=== PATIENT | female | born 1985 | race Caucasian/White ===

== ENCOUNTER 2018-02-11 05:47 | Inpatient (IN) | payer MEDICAID, OTHER, SELFPAY ==
[2018-02-11 06:29] VITALS: BMI 38.3
[2018-02-11] MEDS: Lactated Ringer's 1,000 ML IV SCH ×3 (06:46→22:05)
[2018-02-11] MEDS ORDERED: Penicillin G Potassium 5 MILL.UNITS VIAL ONE (07:25)
[2018-02-11] MEDS ORDERED: Acetaminophen 500 MG TAB PO PRN (07:29)
[2018-02-11] MEDS ORDERED: NS / Oxytocin 40 units/1000ml 1,000 ML IV PRN (07:29)
[2018-02-11] MEDS ORDERED: Docusate 100 MG CAP PO PRN (07:29)
[2018-02-11] MEDS ORDERED: Lidocaine 1% (PF) 30 ML VIAL SC PRN (07:29)
[2018-02-11] MEDS ORDERED: Butorphanol Tartrate 1 MG/ML VIAL SLOW IVP PRN (07:29)
[2018-02-11] MEDS ORDERED: Ondansetron HCl/PF 4 MG/2 ML Vial IVP PRN ×6 (07:29→20:50)
[2018-02-11] MEDS ORDERED: Promethazine HCl 25 MG/ML VIAL IM PRN ×4 (07:29→20:50)
--- NOTE | 2018-02-11 07:32 | PDOC.LDHP ---
Labor and Delivery H&P Chief complaint: contractions HPI: This is a 32 yo female at 41.4 by lmp consistent with 32.5wk US who comes in for contractions less than 5 minutes apart. She was scheduled for C/S last week on 02/05 but no-showed that appointment. She desires TOLAC. Her chance of success was 25.7% by calculator. SHe denies headache, sob, visual changes, swelling, abdominal pain aside from contractions or swelling. She denies bleeding, discharge, burning with urination, or dwyer of fluids. She says she feels baby moving often. Current gestational age (weeks): 41 (41w4d) Due date: 01/31/18 Dating criteria: last menstrual period, other (32w5d us) Grav: 2 Para: 1 OB History Details: prior LTCS with extension of hysterotomy cytotec induction with arrest of descent Current complications: none Abnormal US findings: No Current medications: pre-nellie vitamins Previous surgical history: low tranverse CS Social history: none - Physical Exam Abnormal vital signs: initial pressure 170/108, repeats in high 140s to 150s General: NAD, other (does feel contractions) Heart: RRR Lungs: nonlabored breathing Abdomen: NTTP Extremeties: no edema FHT: category 1 - Vaginal Exam cm dilated: 5 Effacement: 50% Station: -1 - OB Labs Blood type: O RH: positive Antibody Screen: negative HIV: negative RPR: negative HEPSAg: negative 1 hour GCT: negative GBS: positive Urine drug screen: negative Rubella: immune - Assessment L&D Assessment: term patient in labor - Plan Plan: admit to L&D -: # Post-dates intrauterine in labor - /-1 @0630 - cxns q5 min, category 1 strip, no decels - desires epidural - discussed 25.7% chance of successful patient understands she has a high likelihood of progressing to C/S, she understands risks and benefits including risk to self and for attempted - IOL negative, GC/CT negative, no record of 3T labs available will check - expectant management # elevated BP - no hx of pre-e - no hx of elevated pressures - will check pre-e labs - trend BP # GBS positive - penicillin prophylaxis PCP: Naun SERRANO for peds, other children see [facility] Discussed with Drs. Rowland and Naun <Erich Jensen - Last Filed: 02/11/18 07:34> <Suzy Magallon - Last Filed: 02/11/18 09:38> Allergies/Adverse Reactions: Allergies Allergy/AdvReac Type Severity Reaction Status Date / Time No Known Allergies Allergy Verified 03/03/14 23:11 Attending Addendum - Attending Addendum Date/Time: 02/11/1828 I personally evaluated the patient and discussed the management with Dr. Jensen. I agree with the History, Examination, Assessment and Plan documented above with any addition or exceptions noted below. 32yo at 41w1d dated by LMP consistent with 32wUS presenting for contractions. Pt has a history of LTCS with extension of hysterotomy after getting to 10cm and pushing without arrest of descent. She feels this baby is bigger than the last and states that baby went "up" when she was pushing. Pt has been counseled extensively on the low chance of successful given this history however she is adamant that she wants at TOLAC. She has verbalized understanding of the 1% chance of uterine rupture and potential maternal and morbidity associated with it. 1. Term TOLAC -Expectant management -/-2 on my exam -Cat I tracing -Would prefer IUPC prior to starting pitocin for augmentation 2. GBS positive -PCN prophylaxis 3. Elevated BP -All BP since getting epidural have been normotensive -Suspect pain related -Labs WNL (urine still pending) and pt is asymptomatic <Suzy Magallon - Last Filed: 02/11/18 09:38>
[2018-02-11 07:39] LABS: #Basophils 0.1 thou/uL (0.0-0.2); #Lymphocytes 2.3 thou/uL (1.20-3.40); #Monocytes 0.5 thou/uL (0.11-0.59); #Neutrophils 4.2 thou/uL (1.40-6.50); %Basophils 0.8 % (0.0-1.0); %Eosinophils 0.5 % (0.0-10.0); %Lymphocytes 32.4 % (21.0-51.0); %Monocytes 7.2 % (0.0-10.0); %Neutrophils 59.1 % (42.0-75.0); Mean Corpuscular HGB CONC 33.8 g/dL (32.0-36.0); Mean Corpuscular Hemoglobin 29.8 pg (27.0-31.0); Mean Corpuscular Volume 88.1 fL (78.0-98.0); Mean Platelet Volume 11.1 fL (7.4-10.4); Platelet Count 170 thou/uL (130-400); RBC Distribution Width 14.3 % (11.5-14.5); Red Blood Cell (RBC) Count 4.35 mill/uL (4.20-5.40); White Blood Cell (WBC) Count 7.2 thou/uL (4.8-10.8)
[2018-02-11 08:03] LABS: ALT (SGPT) 10 U/L (8-55); AST (SGOT) 18 U/L (5-34); Albumin 3.6 g/dL (3.5-5.0); Alkaline Phosphatase 158 U/L (40-150); Anion Gap 14 mmol/L (10-20); BUN (Urea Nitrogen) 8 mg/dL (7.0-18.7); Bilirubin, Total 0.3 mg/dL (0.2-1.2); Calc. Creatinine Clearance 155 mL/min (70-130); Calcium 9.3 mg/dL (7.8-10.44); Carbon Dioxide 21 mmol/L (22-29); Chloride 106 mmol/L (98-107); Estimated GFR-MDRD Greater than 90; Globulin 3.2 g/dL (2.4-3.5); Glucose 73 mg/dL (70-105); Potassium 4.4 mmol/L (3.5-5.1); Protein, Total 6.8 g/dL (6.0-8.3); Sodium 137 mmol/L (136-145); Uric Acid 7.6 mg/dL (2.6-6.0)
[2018-02-11] MEDS: Bupivacaine 0.5% 20 ML, fentaNYL Citrate/PF 400 MCG in Sodium Chloride 0.9% 72 ML EPIDURAL SCH ×2 (08:06→14:25)
[2018-02-11] MEDS ORDERED: ePHEDrine/0.9% NaCl/PF SYRINGE 50 mg/10 ml SLOW IVP PRN (08:11)
[2018-02-11] MEDS ORDERED: Lactated Ringer's 500 ML IV PRN (08:11)
[2018-02-11] MEDS ORDERED: Naloxone HCl 0.4 mg/ml Vial IVP PRN ×6 (08:11→20:50)
[2018-02-11] MEDS ORDERED: Acetaminophen 325 MG TAB PO PRN ×2 (08:11→20:19)
[2018-02-11] MEDS ORDERED: Eucerin (Mineral Oil/Petrolatum,White) 30 gm Jar TOP PRN ×3 (08:11→20:50)
[2018-02-11] MEDS ORDERED: diphenhydrAMINE 50 MG/ML VIAL IVP PRN ×2 (08:11→15:31)
[2018-02-11] MEDS ORDERED: fentaNYL Citrate/PF 400 MCG, Bupivacaine 0.5% 20 ML in Sodium Chloride 0.9% 72 ML EPIDURAL SCH (08:15)
[2018-02-11] MEDS ORDERED: Communication Order-Pharmacy FS SCH ×3 (08:15→21:00)
[2018-02-11 08:19] LABS: Syphilis Antibody Nonreactive (Nonreactive); Syphilis Antibody Index 0.05 S/CO (<1.00 Non-Reactive)
[2018-02-11 08:31] LABS: Hep B Surf Ag Non-Reactive S/CO (NonReactive)
--- NOTE | 2018-02-11 08:39 | PDOC.LDPN ---
Addendum entered and electronically signed by Macrina Wilhelm MD 02/11/18 09:26 : Please addend: patient has received PCN X 1. Next dose at 1130 Original Note: Labor & Delivery Progress Note - Subjective Subjective: comfortable, no concerns - Objective Vital signs reviewed and normal: yes General: NAD, resting, breathing through contractions Uterine fundus: non tender Dilation: 6 Effacement: 75% Station: -1 FHT: category 1 [place] contractions every: every 4-5 min Resuscitative measures: maternal IV fluids - Assessment (1) Intrauterine Code(s): Z34.90 - ENCNTR FOR SUPRVSN OF NORMAL , UNSP, UNSP TRIMESTER Current Visit: Yes Status: Acute (2) Gestational hypertension Code(s): O13.9 - GESTATIONAL HTN W/O SIGNIFICANT PROTEINURIA, UNSP TRIMESTER Current Visit: Yes Status: Acute Plan: continue plan of care -: This is a 32 yo @ 41.4wks here in labor; desires ; epidural in place. Has friend in the room who has been translating. No family nearby. Post-dates intrauterine in labor - /-1 @0830 - cxns q5 min, category 1 strip, no decels - epidural in place - discussed 25.7% chance of successful patient understands she has a high likelihood of progressing to C/S, she understands risks and benefits including risk to self and infant for attempted - IOL negative, GC/CT negative, no record of 3T labs available will check - expectant management: recheck in 2-4 hours elevated BP - no hx of pre-e - no hx of elevated pressures - Pre-e labs: liver enzymes nml, plts nml, urine protein/cr pending - trend BP: most recent 113/64 - Will consider IV labetolol if pressures rise GBS positive - PCN X 2 PCP: Naun SERRANO for peds, other children see [facility] Discussed with Drs. Rowland and Naun <Macrina Wilhelm - Last Filed: 02/11/18 08:40> Attending Addendum - Attending Addendum Date/Time: 02/11/18 0939 I personally evaluated the patient and discussed the management with Dr. Wilhelm I agree with the History, Examination, Assessment and Plan documented above with any addition or exceptions noted below. Would not diagnose gestational hypertension at this time as pt has had no documented history of elevated pressures prior to this visit while she was in pain. <Suzy Magallon - Last Filed: 02/11/18 09:40>
[2018-02-11 08:54] LABS: HBSAg Index 0.27 S/CO (0-0.99)
[2018-02-11 08:55] LABS: HIV (1/2) Antibody/Antigen Non-Reactive (NonReactive); HIV 1/2 INDEX 0.17 S/CO (<1.00)
[2018-02-11 10:10] LABS: Bilirubin Negative (Negative); Blood, Urine Trace (Negative); Clarity CLEAR (Clear); Glucose, Urine (Dipstick) Negative (Negative); Leukocyte Negative (Negative); Nitrite Negative (Negative); Protein, Urine (Dipstick) Negative (Neg-Trace); Specific Gravity, Urine 1.016 (1.002-1.036); Urobilinogen 0.2 mg/dL (0.2-1.0)
[2018-02-11 10:14] LABS: Bacteria/HPF None Seen HPF (None Seen); Hyaline Casts/LPF 0-3 HYALINE CAST LPF (0-3 Hyaline); Pathc Cast-AUWi Flag 0.43 (0-2.49); Squamous Epithelial 0-3 HPF (0-3); WBC/HPF 0-3 HPF (0-3)
[2018-02-11] MEDS ORDERED: Ondansetron HCl/PF 4 MG/2 ML Vial ONE ×2 (10:20→15:22)
[2018-02-11] MEDS ORDERED: Dexamethasone 20 MG/5 ML VIAL ONE (10:20)
[2018-02-11] MEDS ORDERED: Ketorolac Tromethamine 30 MG/ML VIAL ONE ×2 (10:20→15:36)
[2018-02-11] MEDS: Penicillin G 2.5 MILL.units 2.5 MILL.UNITS in Premix Bag 1 BAG IVPB SCH ×2 (11:30→16:43)
--- NOTE | 2018-02-11 11:47 | PDOC.LDPN ---
Labor & Delivery Progress Note - Subjective Subjective: comfortable, painful contractions - Objective Vital signs reviewed and normal: yes General: NAD, resting, breathing through contractions Uterine fundus: non tender Dilation: 7 Effacement: 90% Station: -1 FHT: category 1 Resuscitative measures: maternal IV fluids - Assessment (1) Intrauterine Code(s): Z34.90 - ENCNTR FOR SUPRVSN OF NORMAL , UNSP, UNSP TRIMESTER Current Visit: Yes Status: Acute (2) Gestational hypertension Code(s): O13.9 - GESTATIONAL HTN W/O SIGNIFICANT PROTEINURIA, UNSP TRIMESTER Current Visit: Yes Status: Acute -: This is a 32 yo @ 41.4wks here in labor; desires ; epidural in place. Has friend in the room who has been translating. No family nearby. Post-dates intrauterine in labor - /-1 @ 1130 - CTXs q3-5 min, category 1 strip, no decels - epidural in place - discussed 25.7% chance of successful patient understands she has a high likelihood of progressing to C/S, she understands risks and benefits including risk to self and infant for attempted - IOL negative, GC/CT negative, no record of 3T labs available will check - expectant management: recheck in 2-4 hours; Will consider AROM elevated BP - no hx of pre-e - no hx of elevated pressures - Pre-e labs neg - BP wnl - Will consider IV labetolol if pressures rise GBS positive - PCN X 2: adequately tx PCP: Naun SERRANO for peds, other children see [facility] Discussed with Drs. [place] <Macrina Wilhelm - Last Filed: 02/11/18 11:49> Attending Addendum - Attending Addendum Date/Time: 02/11/18 1220 I personally evaluated the patient and discussed the management with Dr. Wilhelm I agree with the History, Examination, Assessment and Plan documented above with any addition or exceptions noted below. Pt now /-1 AROMed for large amount of light meconium stained fluid. IUPC placed 135/moderate variability/accels present/one brief variable decel immediately after AROM. Otherwise Cat I tracing. BP again elevated with pain but normotensive after rebolusing her epidural. She remains asymptomatic and labs WNL. Continue close monitoring. <Suzy Magallon - Last Filed: 02/11/18 12:23>
--- NOTE | 2018-02-11 14:21 | PDOC.LDPN ---
Labor & Delivery Progress Note - Subjective Subjective: comfortable, no concerns - Objective Vital signs reviewed and normal: yes General: NAD, resting, breathing through contractions Uterine fundus: non tender Dilation: 7 Effacement: 90% Station: 0 FHT: category 2, variable decelerations (occasional variables with contractions) , variability present [place] contractions every: every 3-5 min AROM: meconium stained fluid (light) IUPC placed: yes Resuscitative measures: maternal IV fluids - Assessment (1) Intrauterine Code(s): Z34.90 - ENCNTR FOR SUPRVSN OF NORMAL , UNSP, UNSP TRIMESTER Current Visit: Yes Status: Acute (2) Gestational hypertension Code(s): O13.9 - GESTATIONAL HTN W/O SIGNIFICANT PROTEINURIA, UNSP TRIMESTER Current Visit: Yes Status: Acute Plan: continue plan of care -: This is a 32 yo @ 41.4wks here in labor; desires ; epidural in place. Has friend in the room who has been translating. No family nearby. Post-dates intrauterine in labor - @ 1130 - CTXs q3-5 min, category 2, variable decelerations - epidural in place - discussed 25.7% chance of successful patient understands she has a high likelihood of progressing to C/S, she understands risks and benefits including risk to self and for attempted - IOL negative, GC/CT negative, no record of 3T labs available will check - expectant management: recheck in 2-4 hours - AROM'd and IUPC in place elevated BP - no hx of pre-e - no hx of elevated pressures - Pre-e labs neg - BP wnl - Will consider IV labetolol if pressures rise GBS positive - PCN X 2: adequately tx PCP: Naun SERRANO for peds, other children see [facility] Discussed with Drs. Rowland and Naun
[2018-02-11] MEDS ORDERED: NS w/ Oxytocin 10 units 500 ML IV SCH ×2 (14:30)
[2018-02-11] MEDS ORDERED: Terbutaline Sulfate 1 MG/ML VIAL SC SCH (15:00)
[2018-02-11] MEDS ORDERED: Bicitra 30 ML UDCUP ONE (15:08)
[2018-02-11] MEDS ORDERED: CEFAZOLIN/Water 2 GM/20 ML SYRINGE ONE (15:08)
--- NOTE | 2018-02-11 15:10 | PDOC.EVN ---
Event Note - Event Note Event Note: Pt is 9cm/100/-1 and having recurrent deep variables to the 60s with every contraction. Variables not improved despite repositioning, maternal oxygen and fluids. Will proceed with repeat for non reassuring heart tracing. R/B/A were discussed with patient who is in agreeance with plan.
[2018-02-11] MEDS ORDERED: Bupivacaine PF 0.5% 30 ML VIAL ONE (15:12)
[2018-02-11] MEDS ORDERED: Lidocaine 2% PF Inj 2 ML VIAL ONE (15:12)
[2018-02-11] MEDS ORDERED: Terbutaline Sulfate 1 MG/ML VIAL ONE (15:12)
[2018-02-11] MEDS ORDERED: Oxytocin 10 UNITS/ML VIAL ONE ×2 (15:21→16:03)
[2018-02-11] MEDS ORDERED: Morphine PF 1 MG/ML SYR ONE (15:23)
[2018-02-11] MEDS ORDERED: HYDROmorphone 2 MG/ML VIAL SLOW IVP PRN (15:30)
[2018-02-11] MEDS ORDERED: Ketorolac Tromethamine 30 MG/ML VIAL IVP SCH (15:30)
[2018-02-11] MEDS ORDERED: Meperidine HCl/PF 25 MG/ML VIAL SLOW IVP PRN (15:30)
[2018-02-11] MEDS ORDERED: Naloxone HCl 0.4 mg/ml Vial IV PRN ×2 (15:31→20:50)
[2018-02-11] MEDS ORDERED: Ketorolac Tromethamine 30 MG/ML VIAL IVP PRN ×2 (15:31→20:50)
[2018-02-11] MEDS ORDERED: Promethazine HCl 25 MG SUPP PR PRN ×2 (15:31→20:50)
[2018-02-11] MEDS ORDERED: Meperidine HCl/PF 25 MG/ML VIAL ONE ×2 (15:35→18:04)
[2018-02-11] MEDS ORDERED: Dexamethasone 4 mg/ml Vial ONE (15:36)
[2018-02-11 15:52] LABS: Actual Bicarbonate (HCO3a) 14.2 mEq/L (22-28); Analyzer IN Cardio OR
[2018-02-11] MEDS ORDERED: Bicitra 30 ML UDCUP PO SCH (17:00)
--- NOTE | 2018-02-11 18:10 | OP ---
PREOPERATIVE DIAGNOSES: 1. Active labor at 41 weeks and 4 days. 2. Trial of labor after section. 3. Nonreassuring heart tracing. 4. Prior section x1. POSTOPERATIVE DIAGNOSES: 1. Active labor at 41 weeks and 4 days. 2. Failed trial of labor after . 3. Nonreassuring heart tracing. 4. Prior section x1. PROCEDURE PERFORMED: Repeat low transverse section via Pfannenstiel skin incision. SURGEON: Suzy Magallon D.O. SUPERVISOR SMOKE CONTROL: Erich Jensen M.D., Tyshawn Robbins M.D. and Cayden Brush D.O. ANESTHESIA: Epidural. COMPLICATIONS: None. ESTIMATED BLOOD LOSS: 1311. URINE OUTPUT: 900. INDICATIONS: A 32-year-old G2, P1-0-0-1, presented in active labor at 41 weeks 4 days with a history of prior section x1, desired trial of labor after section. The patient progressed to 9 cm; however, began to have deep recurrent variable decelerations down to the 60s with slow return to baseline. They did not improve with resuscitative measures. Decision was made to proceed with repeat section for nonreassuring heart tracing. FINDINGS: Female infant in cephalic presentation delivered at 1530 on 2017, Apgars 8 and 9. Weight 2868 grams, significant intra-abdominal adhesions. PROCEDURE IN DETAIL: After informed consent was obtained, the patient was taken to the operating room where epidural anesthesia was found to be adequate. She was prepped and draped in the normal sterile fashion in the dorsal supine position with a leftward tilt. A Pfannenstiel skin incision was made with a scalpel and carried through to the underlying layer of the fascia. The fascia was incised in the midline and the incision was extended laterally with Luevano scissors. Superior aspect of the fascial incision was then grasped with Kasandra clamps and the rectus muscle was dissected off sharply using Luevano scissors. The inferior aspect of the fascial incision was grasped in a similar fashion with Kasandra clamps and the rectus muscle was dissected off sharply using Luevano scissors. The rectus muscles were in the midline and the peritoneum was identified and entered bluntly. This incision was then extended laterally. At that time, significant intra-abdominal adhesions were noted. Care was taken to remove the bladder from the surgical field. The bladder blade was inserted and intra-abdominal adhesions were taken down using sharp dissection. The lower uterine segment was incised in a transverse fashion with the scalpel. The uterine incision was then bluntly extended. The bladder blade was removed and the infant's head was delivered atraumatically. The cord was clamped and cut and the was handed off to waiting pediatricians. Cord gases were sent and pH was 7.25 with base excess was 5. The placenta was then removed manually. The uterus could not be exteriorized due to intra-abdominal adhesions and thus the hysterotomy was repaired in situ. The uterine incision was repaired with 1-0 Vicryl in a running locked fashion. A right-sided inferior lateral hysterotomy extension was noted. A single [id number] was used to obtain hemostasis at the midline of the hysterotomy. The hysterotomy was inspected and noted to be hemostatic. The bladder was backfilled with sterile formula and no extravasation was noted. The gutters were cleared of clots and debris. The muscle was not closed. The fascia was reapproximated with #0 PDS in a running fashion. The subcuticular space was reapproximated with 2-0 plain and the skin was closed with raj. The patient tolerated the procedure well. Sponge, lap, and needle counts were correct x2. Two grams of Ancef was given prior to the procedure. Fundal massage was performed at the end of the procedure to remove all clots from the low uterine segment. The patient was taken to recovery room in stable condition. JUSTIN
[2018-02-11] MEDS ORDERED: Morphine 4 MG/ML VIAL ONE (18:16)
[2018-02-11] MEDS ORDERED: Simethicone Chewable 80 MG TAB PO PRN (20:19)
[2018-02-11] MEDS ORDERED: Acetaminophen/Codeine 30-300mg Tablet PO PRN (20:19)
[2018-02-11] MEDS ORDERED: Lanolin Ointment 7 GM TUBE TOP PRN (20:19)
[2018-02-11] MEDS ORDERED: Adacel (T-DAP) 0.5 ML VIAL IM ONE (21:00)
[2018-02-11] MEDS ORDERED: CEFAZOLIN 1 GM in Sodium Chloride 0.9% 100 ML IVPB SCH (22:00)
[2018-02-11] MEDS ORDERED: CEFAZOLIN 1 GM VIAL SLOW IVP SCH (22:00)
[2018-02-11] MEDS ORDERED: CEFAZOLIN 2 GM in Sodium Chloride 0.9% 100 ML IVPB SCH (22:00)
[2018-02-11] MEDS: CEFAZOLIN/Water 2 GM/20 ML SYRINGE SLOW IVP SCH (22:06)
[2018-02-11] MEDS: diphenhydrAMINE 50 MG/ML VIAL IVP PRN (23:33)
[2018-02-12] MEDS: Docusate Calcium (SURFAK) 240 MG CAP PO SCH ×3 (02:42→21:41)
[2018-02-12] MEDS: Ferrous Sulfate 325 MG TAB PO SCH ×3 (02:42→21:43)
[2018-02-12] MEDS ORDERED: Sodium Chloride 0.9% 10 ML ONE (04:44)
[2018-02-12] MEDS: diphenhydrAMINE 50 MG/ML VIAL IVP PRN (05:16)
[2018-02-12 05:25] LABS: Hemoglobin 10.4 g/dL (12.0-16.0); Mean Corpuscular HGB CONC 33.1 g/dL (32.0-36.0); Mean Corpuscular Hemoglobin 29.8 pg (27.0-31.0); Mean Corpuscular Volume 90.1 fL (78.0-98.0); Mean Platelet Volume 10.2 fL (7.4-10.4); Platelet Count 122 thou/uL (130-400); RBC Distribution Width 14.2 % (11.5-14.5); Red Blood Cell (RBC) Count 3.48 mill/uL (4.20-5.40); White Blood Cell (WBC) Count 12.1 thou/uL (4.8-10.8)
[2018-02-12] MEDS: CEFAZOLIN/Water 2 GM/20 ML SYRINGE SLOW IVP SCH ×2 (06:28→13:47)
[2018-02-12] MEDS: Lactated Ringer's 1,000 ML IV SCH ×2 (06:41→18:41)
--- NOTE | 2018-02-12 06:44 | PDOC.PP ---
Post Progress Note Post Day #: 1 Subjective: Patient states she has very minimal pain this AM. She has not been ambulating as of yet. She states she has not had any N/V/D. She states she has had minimal vaginal bleeding overnight, less than a menses. PO intake tolerated: yes Flatus: yes Ambulation: no Vital Signs (12 hours) Temp Pulse Resp BP 02/12/18 04:00 98.0 F 66 18 130/78 02/12/18 02:05 18 02/11/18 23:59 98.8 F 71 18 130/72 02/11/18 23:26 98.8 F 71 18 02/11/18 22:15 98.3 F 69 18 136/73 02/11/18 21:15 98.6 F 69 18 140/70 02/11/18 19:40 98.9 F 67 20 151/70 H Weight Weight 74.843 kg - Physical Examination General: NAD Cardiovascular: no m/r/g, RRR Respiratory: clear to auscultation bilaterally, non-labored breathing Abdominal: + bowel sounds, appropriately TTP Extremities: negative homans (B) Skin: CS incision dry & intact (bruising on superior edge of incision site), no rash Neurological: no gross focal deficits Psychiatric: A&Ox3, normal affect Result Diagrams: 02/12/18 05:03 02/11/18 06:57 Additional Labs: Post Labs Blood Type O POSITIVE 02/11/18 06:57 Hep Bs Antigen Non-Reactive S/CO (NonReactive) 02/11/18 06:57 (1) Gestational hypertension Code(s): O13.9 - GESTATIONAL HTN W/O SIGNIFICANT PROTEINURIA, UNSP TRIMESTER Status: Acute (2) Intrauterine Code(s): Z34.90 - ENCNTR FOR SUPRVSN OF NORMAL , UNSP, UNSP TRIMESTER Status: Acute (3) delivery delivered Code(s): O82 - ENCOUNTER FOR DELIVERY WITHOUT INDICATION Status: Acute (4) Failed induction Code(s): O61.9 - FAILED INDUCTION OF LABOR, UNSPECIFIED Status: Acute (5) hemorrhage Code(s): O72.1 - OTHER IMMEDIATE HEMORRHAGE Status: Acute - Assessment/Plan # PP day 1 - eating, passsed gas - feels ready to ambulate this AM - pain well-controlled - - low urine output overnight, catheter out this AM, will monitor # PPH - Hgb 13.0-> 10.4 - asymptomatic, monitor # Gestational HTN - pressures WNL overnight - 1 pressure to 150 systolic at 1900 - no headache, visual changes, sob, or abdominal pain - Pr/Cr 0.2 Fluids: LR 125ml/hr Code: full Diet: regular Dispo: 1-2 days <Erich Jensen - Last Filed: 02/12/18 06:42> Vital Signs (12 hours) Temp Pulse Resp BP 02/12/18 06:43 18 02/12/18 04:00 98.0 F 66 18 130/78 02/12/18 02:05 18 02/11/18 23:59 98.8 F 71 18 130/72 02/11/18 23:26 98.8 F 71 18 02/11/18 22:15 98.3 F 69 18 136/73 02/11/18 21:15 98.6 F 69 18 140/70 Weight Weight 74.843 kg Result Diagrams: 02/12/18 05:03 02/11/18 06:57 Additional Labs: Post Labs Blood Type O POSITIVE 02/11/18 06:57 Hep Bs Antigen Non-Reactive S/CO (NonReactive) 02/11/18 06:57 <Suzy Magallon - Last Filed: 02/12/18 08:22> Attending Addendum - Attending Addendum Date/Time: 02/12/18 0816 I personally evaluated the patient and discussed the management with Dr. Jensen I agree with the History, Examination, Assessment and Plan documented above with any addition or exceptions noted below. POD#1. Pt reports she is doing well this morning. Has eaten without nausea. Ambulated without dizziness. Foote out this morning. Has not urinated yet. Pain controlled. Bleeding is minimal. Denies flatus. On exam, hypoactive bowel sounds noted. Abd is soft, non distended, appropriately tender to palpation. Uterus firm and below umbilicus. Appropriate drop in H+H postoperatively. Calculated EBL based on postop H+H is 936 ml. Vitals are stable. Continue routine postoperative care. Anticipate d/c to home on POD # 2 or 3. <Suzy Magallon - Last Filed: 02/12/18 08:22>
[2018-02-12] MEDS ORDERED: Penicillin G Potassium 5 MILL.UNITS in Sodium Chloride 0.9% 100 ML IVPB SCH (08:00)
[2018-02-12] MEDS: Penicillin G 2.5 MILL.units 2.5 MILL.UNITS in Premix Bag 1 BAG IVPB SCH (08:35)
[2018-02-12] MEDS: Prenatal Vitamin 1 TAB PO SCH (09:17)
[2018-02-12] MEDS: Acetaminophen/Codeine 30-300mg Tablet PO PRN ×3 (13:41→21:42)
[2018-02-12] MEDS: Ibuprofen 800 MG TAB PO SCH ×2 (13:41→21:41)
[2018-02-13] MEDS: Lactated Ringer's 1,000 ML IV SCH (04:48)
[2018-02-13] MEDS: CEFAZOLIN/Water 2 GM/20 ML SYRINGE SLOW IVP SCH (04:49)
[2018-02-13] MEDS: Ibuprofen 800 MG TAB PO SCH ×2 (06:10→14:09)
--- NOTE | 2018-02-13 06:28 | PDOC.PP ---
Post Progress Note Post Day #: 2 Subjective: This morning mother states she is feeling well. Pain is well-controlled. She has ambulated without difficulty. She is eating and drinking w/o N/V/D. Had a BM last night. She states she would like to go home later to day if able. PO intake tolerated: yes Flatus: yes Ambulation: yes Vital Signs (12 hours) Temp Pulse Resp BP 02/13/18 04:05 97.6 F 69 16 128/70 02/13/18 00:05 98.2 F 77 16 117/78 02/12/18 20:05 98.1 F 96 20 Weight Weight 74.843 kg - Physical Examination General: NAD Cardiovascular: no m/r/g, RRR Respiratory: clear to auscultation bilaterally Abdominal: + bowel sounds, appropriately TTP Fundus firm & at: 2 cm below umbilicus Skin: CS incision dry & intact, no rash Neurological: no gross focal deficits Psychiatric: A&Ox3 Result Diagrams: 02/12/18 05:03 02/11/18 06:57 Additional Labs: Post Labs Blood Type O POSITIVE 02/11/18 06:57 Hep Bs Antigen Non-Reactive S/CO (NonReactive) 02/11/18 06:57 (1) Gestational hypertension Code(s): O13.9 - GESTATIONAL HTN W/O SIGNIFICANT PROTEINURIA, UNSP TRIMESTER Status: Acute (2) Intrauterine Code(s): Z34.90 - ENCNTR FOR SUPRVSN OF NORMAL , UNSP, UNSP TRIMESTER Status: Acute (3) delivery delivered Code(s): O82 - ENCOUNTER FOR DELIVERY WITHOUT INDICATION Status: Acute (4) Failed induction Code(s): O61.9 - FAILED INDUCTION OF LABOR, UNSPECIFIED Status: Acute (5) hemorrhage Code(s): O72.1 - OTHER IMMEDIATE HEMORRHAGE Status: Acute - Assessment/Plan # PP day 2 - eating, had bm - ambulating well - pain well-controlled - # PPH - Hgb 13.0-> 10.4 -> AM check pending - asymptomatic, monitor # Gestational HTN - pressures WNL overnight - no headache, visual changes, sob, or abdominal pain - Pr/Cr 0.2 Fluids: PO Code: full Diet: regular Dispo: likely this PM <Erich Jensen - Last Filed: 02/13/18 07:10> Vital Signs (12 hours) Temp Pulse Resp BP 02/13/18 07:56 98.2 F 69 20 128/77 02/13/18 07:45 98.2 F 69 20 02/13/18 04:05 97.6 F 69 16 128/70 Weight Weight 74.843 kg Result Diagrams: 02/12/18 05:03 02/11/18 06:57 Additional Labs: Post Labs Blood Type O POSITIVE 02/11/18 06:57 Hep Bs Antigen Non-Reactive S/CO (NonReactive) 02/11/18 06:57 <Suzy Magallon - Last Filed: 02/13/18 12:48> Attending Addendum - Attending Addendum Date/Time: 02/13/18 8950 I personally evaluated the patient and discussed the management with Dr. Jensen. I agree with the History, Examination, Assessment and Plan documented above with any addition or exceptions noted below. Stable POD # 2 s/p RLTCS. Meeting appropriate milestones. Pt requested early d/ c today if baby is also able to go. Of note, I do not believe pt had gestational hypertension. Her elevated BP was only with pain. Followup in [address] [facility] for staple removal <Suzy Magallon - Last Filed: 02/13/18 12:48>
[2018-02-13 07:57] VITALS: BP 128/77; TEMP 98.2
[2018-02-13] MEDS: Docusate Calcium (SURFAK) 240 MG CAP PO SCH (09:35)
[2018-02-13] MEDS: Prenatal Vitamin 1 TAB PO SCH (09:35)
[2018-02-13] MEDS: Ferrous Sulfate 325 MG TAB PO SCH (09:35)
[2018-02-13] MEDS: Acetaminophen/Codeine 30-300mg Tablet PO PRN ×2 (09:37→15:22)
== END 2018-02-13 18:25 | disposition home or self-care (01) | DRG 766 ==
LOC: L&D/OP 05:47 → L&D 06:36 → 3SE 20:01 → 3SW 02-12 07:14
PROVIDERS: ADMIT Family Medicine; ATTEND Family Medicine
PROC: 10D00Z1 Extraction of Products of Conception, Low, Open Approach (ICD-10-PCS; principal; 2018-02-11)
DX: O48.0 Post-term pregnancy (principal); O77.0 Labor and delivery complicated by meconium in amniotic fluid; Z3A.41 41 weeks gestation of pregnancy; Z37.0 Single live birth; O66.41 Failed attempted vaginal birth after previous cesarean delivery; O34.211 Maternal care for low transverse scar from previous cesarean delivery; O76 Abnormality in fetal heart rate and rhythm complicating labor and delivery; O13.4 Gestational [pregnancy-induced] hypertension without significant proteinuria, complicating childbirth; O99.824 Streptococcus B carrier state complicating childbirth
CPT/HCPCS: 36415; 51702; 76815; 80053; 81001; 82570; 82805; 84156; 84550; 85025; 85027; 86780; 86850; 86900; 86901; 87340; 87389; A4216; J1100; J1200; J1885; J2001; J2175; J2270; J2274; J2405; J2540; J2590; J3010; J3105; J3490; J7050; S0020